=== PATIENT | male | born 1995 | race Caucasian/White ===

== ENCOUNTER 2019-07-05 07:45 | Emergency (ER) | payer BC, SELFPAY ==
[2019-07-05 07:46] VITALS: BP 145/88; PULSE 77; RESP 17; TEMP 36.8; O2SAT 98; BMI 30.4
[2019-07-05 07:57] VITALS: O2SAT 98
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
[2019-07-05] MEDS: Diphth,Pertuss(Acell),Tet Vac 0.5 ML Vial IM (08:31)
[2019-07-05 09:49] VITALS: BP 123/79; PULSE 65; RESP 18
== END 2019-07-05 10:01 | disposition home or self-care (01) ==
LOC: ED 08:14
PROVIDERS: Emergency Provider Emergency Medicine
DX: S01.01XA Laceration without foreign body of scalp, initial encounter (principal); V49.40XA Driver injured in collision with unspecified motor vehicles in traffic accident, initial encounter; Y93.9 Activity, unspecified; Y92.9 Unspecified place or not applicable; Y99.9 Unspecified external cause status; Z23 Encounter for immunization; Z72.0 Tobacco use
CPT/HCPCS: 12002; 90471; 90715; 99283